=== PATIENT | female | born 1975 | race Hispanic/Latino ===

== ENCOUNTER → 2019-03-20 | Outpatient (CLI) | payer OTHER ==
--- NOTE | 2019-03-20 14:50 | Diagnostic Imaging Report ---
Thyroid ultrasound. History: Thyroid nodule. Comparison: None available. Discussion: Transverse and longitudinal images of the thyroid were obtained demonstrating normal echogenicity of the thyroid. The sizes of the lobes are normal with the right thyroid lobe measuring 4.6 x 1.3 x 1.8 cm and the left measuring 4.4 x 0.9 x 1.6 cm. The isthmus is within normal limits. An oval circumscribed septated structure with low-level internal echoes and posterior acoustic enhancement is present in the right interpolar region measuring 1.6 x 1.2 x 1.4 cm. No nodules are present on the left. IMPRESSION: Complex right thyroid cyst, TI-RADS 3. Six-month follow-up may be obtained. Signed by: Ammon Bernstein on 03/20/2019 2:47 PM
== END ==
LOC: US 13:00
PROVIDERS: ATTEND Family Medicine
DX: E04.1 Nontoxic single thyroid nodule (principal)
CPT/HCPCS: 76536

== ENCOUNTER → 2020-04-26 | Outpatient (CLI) | payer OTHER | LOC: US 11:44 | PROVIDERS: ATTEND Family Medicine | DX: E07.89 Other specified disorders of thyroid (principal) | CPT/HCPCS: 76536 ==